=== PATIENT | male | born 1990 | race Caucasian/White ===

== ENCOUNTER 2019-01-25 17:13 | Emergency (ER) | payer SELFPAY ==
[2019-01-25] MEDS: SOD CHLORIDE 0.9% 1,000 ML IV (18:04)
== END 2019-01-25 19:04 | disposition home or self-care (01) ==
LOC: E/R 17:13
DX: T40.1X1A Poisoning by heroin, accidental (unintentional), initial encounter (principal)
CPT/HCPCS: 96360; 99284-25